=== PATIENT | female | born 2000 | race African-American/Black ===

== ENCOUNTER 2020-05-16 17:48 | Emergency (ER) | payer OTHER ==
[~2020-05-16] VITALS: Ht 165.1 cm; Wt 79.4 kg
[~2020-05-16 17:48] MED LIST: ACETAMINOPHEN-1 EAC1 PO; CIPRO500 MG PO; CIPROFLOXIN HC2.5 M1 OPHTHALMIC; IBUPROFEN 600600 M1 PO; MACROBID 100 M100 M1 PO; NOHOMEMEDICATIONS; TYLENOL EXTRA500 MG PO
[2020-05-16 18:10] LABS: URINE BLOOD 2+ (Negative); URINE CLARITY SL CLOUDY; URINE COLOR YELLOW; URINE GLUCOSE-RANDOM NEGATIVE (Negative); URINE LEUKOCYTES-REFLEX 1+ (Negative); URINE PROTEIN TRACE (Negative); URINE SPECIFIC GRAVITY 1.015 (1.005-1.030)
[2020-05-16 18:11] LABS: ICTOTEST (BILI CONFIRMATORY) Negative (Negative); URINE BILIRUBIN 1+ (Negative); URINE KETONES 3+ (Negative); URINE NITRITE-REFLEX POSITIVE (Negative)
[2020-05-16 18:17] LABS: BACTERIA-REFLEX >30 Many /HPF (None Seen); SQUAMOUS >10 Many /LPF (0-3); URINE WBC-REFLEX 6-15 Few /HPF (0-5)
[2020-05-16 18:18] LABS: CASTS None Seen /LPF (None Seen); CRYSTALS None Seen /LPF (None Seen); MUCUS 0-3 Light strn/LPF (None Seen); URINE RBC 3-10 Few /HPF (0-2)
[2020-05-16 18:24] LABS: INFLUENZA A ANTIGEN Negative (Negative); INFLUENZA B ANTIGEN Negative (Negative)
[2020-05-16 18:38] LABS: ABSOLUTE BASOPHILS 0.1 thou/uL (0.0-0.2); ABSOLUTE LYMPHOCYTES 1.8 thou/uL (0.8-5.3); ABSOLUTE MONOCYTES 1.8 thou/uL (0.0-1.2); BASOPHILS 0.5 %; EOSINOPHILS 0.1 %; HEMATOCRIT 38.6 % (37.0-47.0); HEMOGLOBIN 12.7 gm/dL (12.0-15.0); LYMPHOCYTES 13.4 %; MONOCYTES 13.4 %; MPV 7.4 fl. (7.2-11.1); NUCLEATED RBCS 0 /100WBC; PLATELET COUNT* 316 thou/uL (150-400); POLYS 72.6 %; RBC 4.39 mil/uL (4.20-5.00); WBC 13.8 thou/uL (4.0-11.0)
[2020-05-16 18:57] LABS: CALCIUM 8.5 mg/dL (8.5-10.1); CREATININE 1.1 mg/dL (0.6-1.3); POTASSIUM 3.2 mmol/L (3.5-5.1)
[2020-05-16 19:08] LABS: TOTAL BILIRUBIN 0.8 mg/dL (<0.1-1.0); TOTAL PROTEIN 7.4 g/dL (6.4-8.2)
[2020-05-16] MEDS ORDERED: ONDANSETRON HCL4 M2 PO (19:58)
[2020-05-16] MEDS ORDERED: CEFDINIR300 MG PO (19:58)
[2020-05-16] MEDS ORDERED: NORCO 5-325 TA1 EAC2 PO (19:58)
[2020-05-16 20:23] VITALS: BP 108/70
== END 2020-05-16 20:24 | disposition home or self-care (01) ==
LOC: M.ERS 17:48
PROVIDERS: Nurse Practitioner Family
DX: N10 Acute pyelonephritis (principal); Z20.828 Contact with and (suspected) exposure to other viral communicable diseases